=== PATIENT | female | born 1990 | race Two or more races ===

== ENCOUNTER 2018-10-12 16:53 | Emergency (ER) | payer MEDICAID ==
[~2018-10-12] VITALS: Ht 160 cm; Wt 53.1 kg
[2018-10-12 18:34] VITALS: BP 116/73
[2018-10-12] MEDS: cefTRIAXone SOD 1,000 MG VL IM ONE (19:21)
[2018-10-12] MEDS: KETOROLAC TROMETH 60MG/2ML VIAL IM ONE (19:21)
== END 2018-10-12 19:36 | disposition home or self-care (01) ==
LOC: ER 16:53
DX: L02.414 Cutaneous abscess of left upper limb (principal); L02.413 Cutaneous abscess of right upper limb; Z88.6 Allergy status to analgesic agent
CPT/HCPCS: 96372; 99283; J0696; J1885